=== PATIENT | male | born 1960 | race American Indian/Alaskan Native ===

== ENCOUNTER 2019-03-28 13:28 | Emergency (ER) | payer SELFPAY ==
--- NOTE | 2019-03-28 13:46 | Emergency Department Report ---
Blank Doc - Documentation Documentation: 58 y/o male with PMH of HTN presents to ED c/o of 1.5 month history of intermi ttent chest pain. Episodes have been more frequent and today was associated with SOB which prompted this ED visit. Plan Chest pain protocol
[2019-03-28] MEDS ORDERED: ZOFRAN IV ONE (14:11)
[2019-03-28] MEDS ORDERED: SUBLIMAZE IV ONE (14:11)
[2019-03-28] MEDS ORDERED: NITRO-BID 2% TP ONE (14:11)
--- NOTE | 2019-03-28 14:17 | Emergency Department Report ---
HPI - General Chief Complaint: Chest Pain Time Seen by Provider: 03/28/19 13:37 - HPI HPI: Room 20 The patient is a 58-year-old male presented with a chief complaint of chest pain. Patient states for the past 4 days he's had intermittent substernal chest tightness that radiates to the areas of his chest. Patient states the tightness associated with shortness of breath, diaphoresis and nausea without vomiting. Patient admits to occasional slight pleurisy and at times hemoptysis. Patient states approximately 2 weeks ago he drove to [place], [place]. Patient states he's never had a stress test or cardiac catheterization Location: [See above] Duration: [See above] Quality: [See above] Severity: [See above] Modifying factors: [see above] Context: [see above] Mode of transportation: [not driving] ED Past Medical Hx - Past Medical History Hx Hypertension: Yes Hx Psychiatric Treatment: Yes - Surgical History Past Surgical History?: No Additional Surgical History: Right thigh repair from dog bite - Family History Family history: no significant - Social History Smoking Status: Current Some Day Smoker Substance Use Type: None (denies illicit drug use), Alcohol (occasional) - Medications Home Medications: Home Medications Medication Instructions Recorded Confirmed Last Taken Type Lisinopril [Zestril TAB] 20 mg PO QDAY #30 tablet 08/06/14 Unknown Rx traMADol [Ultram] 50 mg PO Q6HR PRN #20 tablet 08/06/14 Unknown Rx ED Review of Systems ROS: Stated complaint: CHEST TIGHTNESS Other details as noted in HPI Constitutional: diaphoresis Eyes: denies: eye pain ENT: denies: throat pain Respiratory: shortness of breath Cardiovascular: chest pain Endocrine: no symptoms reported Gastrointestinal: nausea. denies: vomiting Genitourinary: denies: dysuria Musculoskeletal: denies: back pain Neurological: headache Physical Exam - Physical Exam Vital Signs: Vital Signs 03/28/19 13:48 Temperature 98.2 F Pulse Rate 78 Respiratory 18 Rate Blood Pressure 169/116 O2 Sat by Pulse 99 Oximetry Physical Exam: GENERAL: The patient is well-developed well-nourished male lying on stretcher n ot appearing to be in acute distress. [] HEENT: Normocephalic. Atraumatic. Extraocular motions are intact. Patient has moist mucous membranes. NECK: Supple. Trachea midline CHEST/LUNGS: Clear to auscultation. There is no respiratory distress noted. HEART/CARDIOVASCULAR: Regular. There is no tachycardia. There is no gallop rub or murmur. ABDOMEN: Abdomen is soft, nontender. Patient has normal bowel sounds. There is no abdominal distention. SKIN: There is no rash. There is no edema. There is no diaphoresis. NEURO: The patient is awake, alert, and oriented. The patient is cooperative. The patient has normal speech MUSCULOSKELETAL: There is no evidence of acute injury. ED Course Vital Signs 03/28/19 13:48 Temperature 98.2 F Pulse Rate 78 Respiratory 18 Rate Blood Pressure 169/116 O2 Sat by Pulse 99 Oximetry - Consultations Consultation #1: 03/28/19 13:59 EKG sent to and discussed with Dr. Peter ED Medical Decision Making - Lab Data Result diagrams: 03/28/19 14:13 03/28/19 14:13 Laboratory Tests 03/28/19 03/28/19 03/28/19 14:13 14:13 14:45 WBC 5.9 RBC 5.05 H Hgb 15.6 H Hct 44.9 MCV 89 MCH 31 MCHC 35 H RDW 13.4 Plt Count 295 Lymph % (Auto) 31.1 Early % (Auto) 7.5 H Eos % (Auto) 5.7 H Baso % (Auto) 1.2 Lymph # 1.8 Early # 0.4 Eos # 0.3 Baso # 0.1 Seg Neutrophils % 54.5 Seg Neutrophils # 3.2 D-Dimer 238.85 H Sodium 139 Potassium 4.1 Chloride 104.4 Carbon Dioxide 23 Anion Gap 16 BUN 13 Creatinine 1.0 Estimated GFR > 60 BUN/Creatinine Ratio 13 Glucose 102 H Calcium 9.4 Total Bilirubin 0.20 AST 14 ALT 24 Alkaline Phosphatase 86 Total Creatine Kinase CK-MB (CK-2) CK-MB (CK-2) Rel Index Troponin T < 0.010 Total Protein 7.4 Albumin 4.2 Albumin/Globulin Ratio 1.3 Lipase 20 03/28/19 14:45 WBC RBC Hgb Hct MCV MCH MCHC RDW Plt Count Lymph % (Auto) Early % (Auto) Eos % (Auto) Baso % (Auto) Lymph # Early # Eos # Baso # Seg Neutrophils % Seg Neutrophils # D-Dimer Sodium Potassium Chloride Carbon Dioxide Anion Gap BUN Creatinine Estimated GFR BUN/Creatinine Ratio Glucose Calcium Total Bilirubin AST ALT Alkaline Phosphatase Total Creatine Kinase 200 H CK-MB (CK-2) 3.2 CK-MB (CK-2) Rel Index 1.6 Troponin T Total Protein Albumin Albumin/Globulin Ratio Lipase - EKG Data -: EKG Interpreted by Me EKG shows normal: sinus rhythm Rate: normal - EKG Data When compared to previous EKG there are: previous EKG unavailable Interpretation: nonspecific ST-T wave kathleen - Radiology Data Radiology results: report reviewed (chest x-ray), image reviewed (chest x-ray) interpreted by me: Chest x-ray-no focal infiltrates, no pneumothorax Chest x-ray (read by radiologist) -no acute cardiopulmonary disease in the visualized chest Critical care attestation.: If time is entered above; I have spent that time in minutes in the direct care of this critically ill patient, excluding procedure time. ED Disposition Clinical Impression: Chest pain Disposition: [id number] OP ADMIT IP TO THIS HOSP Is pt being admited?: Yes Does the pt Need Aspirin: Yes Condition: Fair Instructions: Chest Pain (ED) Time of Disposition: 16:42 (hospitalist notified (Dr Dolan))
[2019-03-28 14:44] LABS: Basophils # (Auto) 0.1 K/mm3 (0.0-0.1); Basophils % (Auto) 1.2 % (0.0-1.8); Eosinophils # (Auto) 0.3 K/mm3 (0.0-0.4); Eosinophils % (Auto) 5.7 % (0.0-4.3); Hematocrit 44.9 % (35.5-45.6); Hemoglobin 15.6 gm/dl (11.8-15.2); Lymphocytes # (Auto) 1.8 K/mm3 (1.2-5.4); Lymphocytes % (Auto) 31.1 % (13.4-35.0); Mean Corpuscular HGB Conc 35 % (32-34); Mean Corpuscular Volume 89 fl (84-94); Monocytes # (Auto) 0.4 K/mm3 (0.0-0.8); Monocytes % (Auto) 7.5 % (0.0-7.3); Platelet Count 295 K/mm3 (140-440); Red Blood Count 5.05 M/mm3 (3.65-5.03); Red Cell Distribution Width 13.4 % (13.2-15.2)
[2019-03-28 14:49] LABS: Alanine Aminotransferase 24 units/L (7-56); Albumin 4.2 g/dL (3.9-5); BUN/Creatinine Ratio 13; Blood Urea Nitrogen 13 mg/dL (9-20); Calcium 9.4 mg/dL (8.4-10.2); Hemolysis Index 27
--- NOTE | 2019-03-28 15:24 | XRay Report ---
PROCEDURE: XR CHEST ROUTINE 2V TECHNIQUE: PA and lateral chest radiographs were obtained. HISTORY: Chest Pain COMPARISONS: None. FINDINGS: There is no visible pulmonary consolidation. No evidence of pneumothorax. No radiographically visible pleural effusion. Cardiac silhouette size is normal without vascular congestion. No visible acute displaced fracture in the regional skeleton. IMPRESSION: No acute cardiopulmonary disease in the visualized chest. This document is electronically signed by Brayden Elliott MD., March 28 2019 03:22:20 PM ET
[2019-03-28 16:16] LABS: Creatine Kinase MB 3.2 ng/mL (0.0-4.0)
[2019-03-28] MEDS ORDERED: ASPIRIN PO ONE (16:42)
[2019-03-28] MEDS ORDERED: PROTONIX PO ONE (16:45)
[2019-03-28] MEDS ORDERED: NORCO 5/325 PO ONE (17:23)
--- NOTE | 2019-03-28 17:43 | Cat Scan Report ---
PROCEDURE: CT HEAD/BRAIN WO CON TECHNIQUE: Computerized tomography of the head was performed without contrast material. CT DOSE LENGTH PRODUCT: 805.4 mGycm HISTORY: headache COMPARISONS: None . FINDINGS: Brain: There is no evidence of intracranial hemorrhage. No parenchymal hemorrhage or mass lesions are identified.. Diffuse areas of decreased density seen in the periventricular white matter throughout the centrum semiovale greater anteriorly than posteriorly. Brain density otherwise appears normal. No abnormal extra-axial fluid collections or masses are seen. Ventricles: Ventricles are normal size and are midline. Bone Windows: No evidence of skull fracture. Paranasal sinuses: Visualized portions are clear.. Mastoid air cells: Clear. IMPRESSION: Moderate scattered areas of decreased density seen diffusely in the centrum semiovale greater anterio rly than posteriorly. There are no prior studies to compare with. This may represent gliosis from chr onic microvascular disease. Demyelinating disease or even masses within the white matter not entirely excluded. Correlation with clinical presentation and prior history recommended. If clinically indica charles MRI of the brain could be obtained for further evaluation. No other abnormalities are seen.. This document is electronically signed by Driss Lim MD., March 28 2019 05:41:22 PM ET
--- NOTE | 2019-03-28 17:47 | Cat Scan Report ---
PROCEDURE: CT ANGIO CHEST TECHNIQUE: TECHNIQUE: CT examination of the chest after IV contrast. Multiplanar angiographic image post processing. CT DOSE LENGTH PRODUCT: 705.1 mGycm HISTORY: chest pain COMPARISONS: 2 view chest 03/28/2019 . FINDINGS: Normal cardiac size without pericardial effusion. Intact normal caliber thoracic aorta. Normal-appear ing esophagus. No hilar mass or mediastinal adenopathy. Nonspecific small subcutaneous nodule in righ t upper anterior chest wall. Average CT density -29. This may be a sebaceous cyst. The visualized pulmonary arteries are diffusely patent bilaterally. There is no filling defect to sug gest PE. No acute fracture. No pneumothorax or pleural effusion. No focal pulmonary consolidation. No evidence of lung mass or nodule. IMPRESSION: No CT evidence of pulmonary arterial embolic disease or acute cardiopulmonary disease This document is electronically signed by Brayden Elliott MD., March 28 2019 05:45:08 PM ET
[2019-03-28 20:44] VITALS: BP 138/90
== END 2019-03-28 19:30 | disposition admitted as inpatient to this hospital (09) ==
LOC: ED 13:28
DX: R07.89 Other chest pain (principal); R06.02 Shortness of breath; F17.200 Nicotine dependence, unspecified, uncomplicated
CPT/HCPCS: 36415; 70450; 71046; 71275; 80053; 82550; 82553; 83690; 84484; 85025; 85379; 93005; 93010; 96374; 96375; 99285; J2405; J3010; Q9967